=== PATIENT | female | born 1990 | race Caucasian/White ===

== ENCOUNTER 2018-03-16 21:12 | Emergency (ER) | payer SELFPAY ==
[2018-03-16 21:19] VITALS: BP 128/71; BMI 45.8
--- NOTE | 2018-03-16 23:22 | DR.GENAD ---
HPI - PCP Primary Care Physician: NFD - Complaint/Symptoms Chief Complaint:: LLQ CRAMPING(CONSTANT BUT INTERMITTMENT PRESSURE) PAIN FOR THE LAST WEEK. DENIES ANY DYSURIA. DENIES ANY PAIN WITH INTERCOURSE. DENIES ANY VAGINAL DISCHARGE. NAUSEA BUT DENIES ANY VOMITING OR DIARRHEA. LAST NORMAL BOWELMOVEMENT TODAY. - Nurses notes reviewed Nurses Notes Review: Yes - Source History Provided: Patient - Mode of Arrival Mode of Arrival: Ambulatory - Timing Onset of Chief Complaint: 03/09/18 PMH - PMH Past Medical History: Yes Past Medical History: Depression, Hypertension Past Medical History Comment: PCOS Past Surgical History: Yes Surgical History: Cholecystectomy, [employer] Surgery, Tonsillectomy Past Surgical History Comment: ADNOIDS. RT FALLOPIAN TUBE - Family History History of Family Medical Conditions: Yes Family Medical History: Diabetes Mellitus, Hypertension - Social History Type of Tobacco Use: Cigarettes Alcohol Use: None Do you use any recreational Drugs:: No Lives Where: Home - infectious screening Have you traveled outside the country in the last 6 months?: No Isolation: Standard ROS - Review of Systems Constitutional: No Symptoms Reported Eyes: No Symptoms Reported ENTM: No Symptoms Reported Respiratoy: No Symptoms Reported Cardiovascular: No Symptoms Reported Gastrointestinal/Abdominal: Nausea, Other (lt. sided pelvic pain) Genitourinary: No Symptoms Reported Neurological: No Symptoms Reported Musculoskeletal: No Symptoms Reported Integumentary: No Symptoms Reported Hematologic/Lymphatic: No Symptoms Reported Endocrine: No Symptoms Reported Psychiatric: No Symptoms Reported All Other Systems: Reviewed and Negative PE - Vital Signs Vitals: Temperature 98.0 F Pulse Rate 91 Respiratory Rate 16 Blood Pressure 128/71 O2 Sat by Pulse Oximetry 99 - General Limitations: No Limitations General Appearance: Alert, In No Apparent Distress - Head Head Exam: Normal Inspection - Eyes Eye exam: Normal Appearance - ENT ENT Exam: Normal Exam - Neck Neck Exam: Normal Inspection, Full ROM, Trachea Midline - Chest Chest Inspection: Normal Inspection - Respiratory Respiratory Exam: Normal Lung Sounds Bilat - Cardiovascular Cardiovascular Exam: Regular Rate, Normal Rhythm, Normal Heart Sounds, +S1, +S2 - Abdominal Exam Abdominal Exam: Normal Inspection, Normal Bowel Sounds, Soft, Other (obese). negative: Distention, Tenderness, Guarding, Rebound, Rigidity, Dimnished Bowel Sounds, Hyperactive Bowel Sounds, Hypoactive Bowel Sounds, Organomegaly, Trauma , Incision, Ascites, Mass, Bruit, Pulsatile Mass, Hernia - Extremities Extremities Exam: Normal Inspection, Full ROM - Back Back Exam: Normal Inspection - Neurologic Neurological Exam: Alert, Oriented X3, Normal Gait - Psychiatric Psychiatric Exam: Normal Affect, Normal Mood - Skin Skin Exam: Warm, Dry, Intact, Normal Color ROR - Labs Reviewed Laboratory: Specimen Type Clean catch urine 03/16/18 23:30 Urine Color Dark yellow (YELLOW) 03/16/18 23:30 Urine Appearance Cloudy (CLEAR) 03/16/18 23:30 Urine pH 5.0 (5.0 - 8.0) 03/16/18 23:30 Ur Specific [place] 1.020 (1.000-1.030) 03/16/18 23:30 Urine Protein 2+ (NEGATIVE) 03/16/18 23:30 Urine Glucose (UA) Negative (NEGATIVE) 03/16/18 23:30 Urine Ketones Negative (NEGATIVE) 03/16/18 23:30 Urine Occult Blood 2+ (NEGATIVE) 03/16/18 23:30 Urine Nitrite Positive (NEGATIVE) 03/16/18 23:30 Urine Bilirubin Negative (NEGATIVE) 03/16/18 23:30 Urine Urobilinogen Normal (NORMAL) 03/16/18 23:30 Ur Leukocyte Esterase 3+ (NEGATIVE) 03/16/18 23:30 Urine RBC 5-10 /HPF (NONE SEEN) 03/16/18 23:30 Urine WBC Tntc /HPF (NONE SEEN) 03/16/18 23:30 Ur Squamous Epith Cells Few /HPF (NEGATIVE) 03/16/18 23:30 Urine Bacteria 2+ /HPF (NEGATIVE) 03/16/18 23:30 Ur Culture Indicated? Yes/culture set up 03/16/18 23:30 - XRAY XRAY Interpreted by: Radiologist (CT Scan pelvis: No acurte process) - Diagnosis Discharge Problem: UTI (urinary tract infection) - Discharge Plan Disposition: 01 HOME, SELF-CARE Condition: Stable - Follow ups/Referrals Follow ups/Referrals: NFD,None [Primary Care Provider] - 3 days - Instructions Instructions: Urinary Tract Infection, Adult, [id number]
[2018-03-16 23:41] LABS: BILIRUBIN,URINE NEGATIVE (NEGATIVE); BLOOD/HEMOGLOBIN,URINE 2+ (NEGATIVE); GLUCOSE, URINE NEGATIVE (NEGATIVE); KETONES,URINE NEGATIVE (NEGATIVE); LEUKOCYTE ESTERASE ,URINE 3+ (NEGATIVE); NITRITES,URINE POSITIVE (NEGATIVE); PROTEIN,URINE 2+ (NEGATIVE); UROBILINOGEN,URINE NORMAL (NORMAL)
[2018-03-16 23:55] LABS: APPEARANCE,URINE CLOUDY (CLEAR); COLOR,URINE DARK YELLOW (YELLOW)
[2018-03-16 23:56] LABS: BACTERIA,URINE 2+ /HPF (NEGATIVE); SQUAMOUS EPITHELIAL CELL,UR FEW /HPF (NEGATIVE)
--- NOTE | 2018-03-17 00:05 | CT ---
CT abdomen and pelvis without contrast Indication: Left lower quadrant pain for 2 weeks. Comparison: None Technique: CT images of the abdomen and pelvis were obtained without contrast. Automatic exposure con trol was utilized. Findings: There is minimal left basilar atelectasis. No acute skeletal abnormality. Previous cholecystectomy is noted. the spleen is mildly enlarged, but without obvious focal lesion. W ithin the limitations of a noncontrast study, the liver, stomach, duodenum, pancreas, adrenals, and l eft kidney are unremarkable. There are multiple right lower pole renal stones, measuring up to 1.1 cm . There is no hydronephrosis or ureteral stone bilaterally. No significant thickening or dilatation of the lower GI tract. There is no colonic diverticulosis. Th e appendix is normal. The uterus and ovaries are noted. No large pelvic mass or collection. The urina ry bladder and rectum are unremarkable. No free fluid or adenopathy. Impression: No acute process to explain patient's symptoms. Nonobstructing right nephrolithiasis, measuring up to 1.1 cm. Mild splenomegaly. Reported By:
[2018-03-17] MEDS ORDERED: CIPRO TAB 500 MG PO ONE ×2 (00:37→00:39)
== END 2018-03-17 00:52 | disposition home or self-care (01) ==
LOC: ER 21:12
DX: N39.0 Urinary tract infection, site not specified (principal); R10.32 Left lower quadrant pain; B96.20 Unspecified Escherichia coli [E. coli] as the cause of diseases classified elsewhere
CPT/HCPCS: 74176; 81001; 87086; 87088; 87186; 99282; 99283